=== PATIENT | female | born 1975 | race Caucasian/White ===

== ENCOUNTER 2019-07-22 08:45 | Outpatient (CLI) | payer OTHER, SELFPAY ==
[2019-07-22 09:52] LABS: HCG Quant, Pregnancy 20497 mIU/mL (1-3)
== END 2019-07-22 09:05 ==
PROVIDERS: PCP Family Medicine; Visit Provider Obstetrics & Gynecology Gynecology
DX: Z32.01 Encounter for pregnancy test, result positive (principal); Z01.84 Encounter for antibody response examination
CPT/HCPCS: 36415; 86850; 86900; 86901; 84702

== ENCOUNTER 2019-07-25 15:35 | Outpatient (CLI) | payer OTHER, SELFPAY ==
[2019-07-25 16:06] LABS: HCT 38.2 % (36.0-46.0); HGB 13.5 g/dL (12.0-15.5); Mean Corp. HGB Concentration 35.3 g/dL (32.0-36.0); Mean Corpuscular Hemoglobin 30.9 pg (27.0-33.0); Mean Corpuscular Volume 87.4 fL (80-95); Mean Platelet Volume 9.5 fL (8.0-11.0); Platelet Count 246 x1000/uL (130-400); RBC 4.37 m/cumm (4.00-5.20); RBC Distribution Width 12.8 % (11.7-14.6); White Blood Cell Count 8.15 k/cumm (4.4-10.8)
== END 2019-07-25 15:55 ==
PROVIDERS: PCP Family Medicine; Visit Provider Obstetrics & Gynecology Gynecology
DX: O02.1 Missed abortion (principal); Z01.818 Encounter for other preprocedural examination; Z01.812 Encounter for preprocedural laboratory examination
CPT/HCPCS: 36415; 85027; 86850; 86900; 86901

== ENCOUNTER 2019-07-26 06:11 | Day surgery (SDC) | payer OTHER, SELFPAY ==
[2019-07-26 06:30] VITALS: BP 133/88; PULSE 74; RESP 16; TEMP 36.4; O2SAT 100
[2019-07-26] MEDS: Lactated Ringers 1,000 ML 125 ML IV (06:52)
[2019-07-26] MEDS: DOXYCYCLINE 100 MG in Normal Saline 100 ML IVPB (07:38)
[2019-07-26] MEDS: Bupivacaine 0.25% Pres-Free 30 ML VIAL (07:47)
--- NOTE | 2019-07-26 07:50 | POCSPONT_PTH ---
PATIENT: Peace Harper LOC: [facility] U#:[id number] AGE/SX: 44/F ROOM: RE07/26/[address]: Manjula Morales : 1975 BED: DIS: 07/26/2019 SPEC #: [id number] RECD: 07/26/19 12:51 STATUS: FAHAD REKeily #: [id number] VERONICA: 07/26/19 07:[address]: Manjula Morales DEPT: Surgical Specimen RECD BY: Lorenza Shi ENTERED: 07/26/19 12:51 SP TYPE: POCSPONT JACIEL DR: Delia Mckinney Tissues: 1 - ,SPONTANEOUS Procedures: GROSS AND MICRO LEVEL 4 IMMUNOPEROXIDASE STAIN Comments: [id number]
[2019-07-26 08:28] VITALS: BP 116/71; PULSE 67; RESP 16; TEMP 36.6; O2SAT 96
--- NOTE | 2019-07-26 08:32 | W.PM.OP ---
Date of service: 07/26/19 Time of Service: 09:12 Operative Note Operative Note DATE OF PROCEDURE: 07/26/19 PRE-OP DIAGNOSIS: Missed at 10+ weeks estimated stational age POST-OP DIAGNOSIS: same PROCEDURE: Cervical dilatation and suction curettage or uterine cavity SURGEON: Manjula Morales ANESTHESIA: MAC ESTIMATED BLOOD LOSS: 0 PATHOLOGY: other (Products of conception to pathology) COMPLICATIONS: None Patient was transported to: same day Patient's condition: stable Indications: 44-year-old G2, P0 female who was noted to have an empty gestational sac at approximately 10 weeks as gestational age at the time of a dating ultrasound performed on 04/21/2020. Her quantitative hCG was 20,497 mIU/ml and blood type Rh+. Patient was counseled that in all likelihood this was a missed AB we discussed the possibility of a repeat ultrasound and a D&C next week. She was agreeable to this plan. However she began light uterine bleeding on 07/24/2019 and the decision was made to proceed with the D&C earlier than anticipated. Findings: Uterus is enlarged globular sounded to 9 cm. Moderate amount of products of conception removed from uterine cavity. The uterine cavity felt normal. Procedure Description: Patient was taken to the operating room she was placed in the dorsal supine position where monitored anesthesia care was administered without difficulty. She was then placed in the dorsal lithotomy position in yellowfin stirrups prepped and draped in the usual sterile fashion. SCDs were in place. Doxycycline 100 mg IV was administered when she entered the room. A bivalve speculum was placed in the vagina and the anterior lip of the cervix was infiltrated with 1cc of quarter percent Marcaine and a single-tooth tenaculum was applied to the anterior lip of the cervix. A paracervical block was performed with 5 cc of quarter percent Marcaine without epinephrine and the 4 and 8:00 cervical vaginal interface. Uterus was sounded with the above-noted findings and the cervix sequentially dilated to a maximum of 20 [place]. A 9 mm curved suction cannula was placed in the uterus attached to suction and all 4 quadrants of the uterine cavity were suction curetted with a moderate amount of tissue obtained. Suction cannula was removed and a banjo curette was used to gently curette all 4 quadrants uterine cavity with minimal tissue returned. Final pass of the suction curette was used with no tissue returned. The instruments were removed from the patient's vagina and the tenaculum site was noted to be hemostatic. She was placed in the dorsal supine position and awakened from anesthesia and successfully transferred to day surgery unit. All sponge lap needle counts correct x2
== END 2019-07-26 09:11 | disposition home or self-care (01) ==
PROVIDERS: PCP Family Medicine; Visit Provider Obstetrics & Gynecology Gynecology
PROC: (CPT 59841; principal; 2019-07-26 07:45)
DX: O02.1 Missed abortion (principal)
CPT/HCPCS: 59820; 88305; 88361; J1885; J2001; J2405

== ENCOUNTER 2019-09-02 09:14 | Outpatient (CLI) | payer OTHER, SELFPAY ==
[2019-09-02 10:49] LABS: HCG Quant, Pregnancy 1 mIU/mL (1-3)
[2019-09-03 10:14] LABS: Hepatitis B Surface Ag Negative (Negative)
[2019-09-03 10:37] LABS: Hepatitis C Ab w Rflx HCV PCR Negative (Negative)
[2019-09-03 11:13] LABS: HIV-1/2 Ag & Ab Screen Negative (Negative)
[2019-09-03 13:44] LABS: Syphilis Total Ab w/Reflex Nonreactive (Nonreactive)
== END 2019-09-02 09:34 ==
PROVIDERS: Obstetrics & Gynecology Gynecology; PCP Family Medicine; Visit Provider Nurse Practitioner Family
DX: Z11.3 Encounter for screening for infections with a predominantly sexual mode of transmission (principal); Z11.59 Encounter for screening for other viral diseases; Z11.4 Encounter for screening for human immunodeficiency virus [HIV]
CPT/HCPCS: 36415; 86803; 87340; 87389; 84702; 86780

== ENCOUNTER 2019-09-02 09:15 | Outpatient (REF) | payer OTHER, SELFPAY ==
--- NOTE | 2019-09-02 09:00 | PAPFT_PTH ---
PATIENT: Peace Harper LOC: [facility] U#:[id number] AGE/SX: 44/F ROOM: RE09/02/[address]: ARLIN Sebastian : 1975 BED: DIS: 09/02/2019 SPEC #: [id number] RECD: 09/02/19 12:52 STATUS: FAHAD REQ #: [id number] VERONICA: 09/02/19 09:[address]: Cecilia Tsai DEPT: [facility] Cytology RECD BY: Lorenza Shi ENTERED: 09/02/19 12:52 SP TYPE: PAPFT OTHR DR: Delia Mckinney Tissues: 1 - CX/ENDOCX FOR PAP SMEARS Procedures: PAP THIN PREP/UVM Screening HPV DNA PROBE Comments: [id number]
[2019-09-03 12:55] LABS: Chlamydia Result Negative (Negative); GC Result Negative (Negative)
== END 2019-09-02 09:35 ==
LOC: LBN 09:15
PROVIDERS: PCP Family Medicine; Visit Provider Nurse Practitioner Family
DX: Z11.3 Encounter for screening for infections with a predominantly sexual mode of transmission (principal); Z12.4 Encounter for screening for malignant neoplasm of cervix; Z11.51 Encounter for screening for human papillomavirus (HPV)
CPT/HCPCS: 87491; 87591; 88142; 87624

== ENCOUNTER 2020-09-03 11:08 | Outpatient (REF) | payer OTHER, SELFPAY ==
--- NOTE | 2020-09-03 10:30 | PAPFT_PTH ---
PATIENT: Peace Harper LOC: [place] U#:[id number] AGE/SX: 45/F ROOM: RE09/03/[address]: ARLIN Sebastian : 1975 BED: DIS: 09/03/2020 SPEC #: [id number] RECD: 09/03/20 18:17 STATUS: FAHAD REQ #: [id number] VERONICA: 09/03/20 10:[address]: Cecilia Tsai DEPT: [facility] Cytology RECD BY: Lorenza Shi ENTERED: 09/03/20 18:17 SP TYPE: PAPFT OTHR DR: Delia Mckinney Tissues: 1 - CX/ENDOCX FOR PAP SMEARS Procedures: PAP THIN PREP/UVM Screening HPV DNA PROBE Comments: [id number]
== END 2020-09-03 11:09 | disposition home or self-care (01) ==
LOC: LBN 11:08
PROVIDERS: PCP Family Medicine; Visit Provider Nurse Practitioner Family
DX: Z12.4 Encounter for screening for malignant neoplasm of cervix (principal); R87.610 Atypical squamous cells of undetermined significance on cytologic smear of cervix (ASC-US); Z11.51 Encounter for screening for human papillomavirus (HPV)
CPT/HCPCS: 88142; 87624

== ENCOUNTER 2020-09-10 08:29 | Outpatient (REF) | payer OTHER, SELFPAY ==
[2020-09-10 13:27] LABS: Abs Immature Grans 0.01 10^3/uL (0.0-0.06); Absolute Basophil Count 0.04 10^3/uL (0.0-0.2); Absolute Lymphocyte Count 2.06 10^3/uL (1.2-3.4); Absolute Monocyte Count 0.52 10^3/uL (0.1-0.8); Absolute Neutrophil Count 4.38 10^3/uL (1.2-6.7); Basophils % 0.6; Eosinophils % 1.4; HCT 42.8 % (36.0-46.0); HGB 15.1 g/dL (11.2-15.7); Immature Grans % 0.1; MCH 30.6 pg (27.0-33.0); MCHC 35.3 % (32.0-36.0); MCV 86.8 fL (80-95); Monocytes % 7.3; Neutrophils % 61.6; Nucleated RBC 0 %; Platelet Count 249 10^3/uL (130-400); RBC 4.93 10^6/uL (3.93-5.22); RDW-SD 38.4 fL; WBC 7.11 10^3/uL (4.4-10.8)
[2020-09-10 13:59] LABS: Calcium 9.2 mg/dL (8.5-10.1); Glucose 92 mg/dL (74-106)
[2020-09-10 14:00] LABS: ALT 31 U/L (14-59); AST 19 U/L (15-37); Albumin 4.2 g/dL (3.4-5.0); Alkaline Phosphatase 75 U/L (46-116); BUN 14 mg/dL (7-18); Bilirubin, Total 0.6 mg/dL (0.2-1.0); CREATININE 0.8 mg/dL (0.55-1.02); Calculated LDL 129 mg/dL (<100); Chloride 103 mmol/L (98-107); Cholesterol 199 mg/dL (<200); HDL Cholesterol 54 mg/dL (40-60); Potassium 3.7 mmol/L (3.5-5.1); Sodium 140 mmol/L (136-145); TSH (W/Ref FT4) 2.57 uIU/mL (0.36-3.74); Total Protein 7.6 g/dL (6.4-8.2); Triglyceride 84 mg/dL (<150)
== END 2020-09-10 08:30 | disposition home or self-care (01) ==
LOC: NCHCN 08:29
PROVIDERS: PCP Family Medicine; Visit Provider Family Medicine
DX: Z00.00 Encounter for general adult medical examination without abnormal findings (principal); Z13.29 Encounter for screening for other suspected endocrine disorder; Z13.220 Encounter for screening for lipoid disorders; Z13.21 Encounter for screening for nutritional disorder; R53.83 Other fatigue; E55.9 Vitamin D deficiency, unspecified
CPT/HCPCS: 80053; 80061; 82306; 84443; 85025

== ENCOUNTER 2020-09-23 02:05 | Outpatient (CLI) | payer OTHER, SELFPAY ==
--- NOTE | 2020-09-23 08:00 | DI.MAMMO_ITS ---
EXAM: MG MAMMO SCREENING CLINICAL HISTORY: screening,BASELINE,Z12.39. TECHNIQUE: Bilateral full field digital CC and MLO mammographic images were obtained with 3D tomosyn thesis and utilizing computer aided detection (CAD). COMPARISON: None. This is a baseline mammogram on this 42-year-old female patient. FINDINGS: Fibroglandular tissue is very dense, this decreasing the sensitivity mammogram for finding hidden und erlying lesions. There are no CAD designations. In the right breast there is a is a subtle suggestion of an asymmetric density-possible nodule seen o n the CC view located 4 centimetres in from the nipple, lateral of center. No malignant-appearing mi crocalcification groups in this region or elsewhere in either breast. There is no significant architectural distortion nor skin thickening-retraction. IMPRESSION: Very dense bilateral fibroglandular tissue. Asymmetric density-possible nodule in the right breast, slightly lateral center. Given this finding and density of this patient's fibroglandular tissue and significant family history I recommend which she undergo bilateral complete breast ultrasound BI-RADS Category 0 - Assessment Incomplete: Need additional imaging evaluation Breast Density - Category D - Extremely dense Breast density Category C or D implies that the patient has dense breast tissue. Dense breast tissue can make it harder to find cancer on a mammogram. Dense breast tissue is also associated with an incr eased risk of breast cancer. This information about the result of the mammogram report was provided to the patient to raise their awareness. Use this report when you speak with the patient about their risks for breast cancer, which includes their family history. At that time, you may recommend additional screening tests (Ultrasoun d or MRI) as these tests may add significant information. A negative radiographic report should not delay biopsy if a dominant or clinically suspicious mass is present. Up to ten percent of cancers are not identified on mammography. A negative report may reinforce clinical impression. Adenosis and dense breasts may obscure an underlying neoplasm. False positive reports average 6 to 10%. Patient will receive a letter notifying them of these results.
== END 2020-09-23 02:25 ==
PROVIDERS: PCP Family Medicine; Visit Provider Nurse Practitioner Family
DX: Z12.31 Encounter for screening mammogram for malignant neoplasm of breast (principal); R92.8 Other abnormal and inconclusive findings on diagnostic imaging of breast
CPT/HCPCS: 77063; 77067

== ENCOUNTER 2020-10-12 15:59 | Outpatient (REF) | payer OTHER, SELFPAY ==
--- NOTE | 2020-10-12 15:51 | ENDO_PTH ---
PATIENT: Peace Harper LOC: [place] U#:[id number] AGE/SX: 45/F ROOM: RE10/12/[address]: Manjula Morales : 1975 BED: DIS: 10/12/2020 SPEC #: [id number] RECD: 10/12/20 17:09 STATUS: FAHAD REKeily #: [id number] VERONICA: 10/12/20 15:[address]: Manjula Morales DEPT: Surgical Specimen RECD BY: Lorenza Shi ENTERED: 10/12/20 17:10 SP TYPE: Endo OTHR DR: Delia Mckinney Tissues: 1 - ENDOCERVICAL BX/CURRETTE Procedures: GROSS AND MICRO LEVEL 4 Comments: [id number]
== END 2020-10-12 16:00 | disposition home or self-care (01) ==
LOC: LBN 15:59
PROVIDERS: PCP Family Medicine; Visit Provider Obstetrics & Gynecology Gynecology
DX: N88.8 Other specified noninflammatory disorders of cervix uteri (principal)
CPT/HCPCS: 88305

== ENCOUNTER 2020-10-16 01:54 | Outpatient (CLI) | payer OTHER, SELFPAY ==
[2020-10-16 17:16] LABS: Estradiol 233 pg/mL (See Note)
[2020-10-16 17:39] LABS: FSH 1.9 mIU/mL (See Note)
[2020-10-17 15:24] LABS: Antimullerian Hormone 0.06 ng/mL (0.03-5.5)
== END 2020-10-16 01:55 | disposition home or self-care (01) ==
LOC: LBO 01:54
PROVIDERS: PCP Family Medicine; Visit Provider Obstetrics & Gynecology Gynecology
DX: Z87.42 Personal history of other diseases of the female genital tract (principal); Z31.89 Encounter for other procreative management
CPT/HCPCS: 36415; 82670; 83001; 83520

== ENCOUNTER 2021-09-27 10:19 | Outpatient (REF) | payer OTHER, SELFPAY ==
--- NOTE | 2021-09-27 09:45 | PAPFT_PTH ---
PATIENT: Peace Harper LOC: [place] U#:[id number] AGE/SX: 46/F ROOM: RE09/27/[address]: ARLIN Sebastian : 1975 BED: DIS: 09/27/2021 SPEC #: [id number] RECD: 09/27/21 13:07 STATUS: FAHAD REKeily #: [id number] VERONICA: 09/27/21 09:[address]: Cecilia Tsai DEPT: [facility] Cytology RECD BY: Lorenza Shi ENTERED: 09/27/21 13:07 SP TYPE: PAPFT OTHR DR: Delia Mckinney Tissues: 1 - CX/ENDOCX FOR PAP SMEARS Procedures: PAP THIN PREP/UVM Screening HPV DNA PROBE Comments: [id number]
== END 2021-09-27 10:20 | disposition home or self-care (01) ==
LOC: LBN 10:19
PROVIDERS: PCP Family Medicine; Visit Provider Nurse Practitioner Family
DX: Z12.4 Encounter for screening for malignant neoplasm of cervix (principal); Z11.51 Encounter for screening for human papillomavirus (HPV); Z87.42 Personal history of other diseases of the female genital tract
CPT/HCPCS: 88142; 87624

== ENCOUNTER → 2021-12-08 01:31 | Outpatient (CLI) | payer OTHER, SELFPAY ==
--- NOTE | 2021-12-08 12:17 | DI.MAMMO_ITS ---
Exam(s) MAMMO SCREENING EXAM: MAMMO SCREENING CLINICAL HISTORY: screening. TECHNIQUE: Bilateral full field digital CC and MLO mammographic images were obtained with 3D tomosyn thesis and utilizing computer aided detection (CAD). COMPARISON: Prior baseline mammogram of 09/23/2020 mammograms was reviewed, as was the bilateral yeyo ast ultrasound exam 09/30/2020. FINDINGS: The fibroglandular tissue pattern of the breast is is again noted to be very dense, this decreasing t he sensitivity of the mammogram for finding hidden underlying lesions. There are no CAD designations. Asymmetric density on the medial aspect of the right breast (cc view) is unchanged. There are no new spiculated masses nor malignant-appearing microcalcification in either breast. There is no significant architectural distortion nor skin thickening-retraction. IMPRESSION: Very dense bilateral fibroglandular tissue. No obvious radiographic evidence of malignancy. However, when reviewing this case and note that her ultrasound examination of 09/30/2020 revealed mul tiple nodules in the left breast which are hidden subjacent to her dense fibroglandular tissue on tran mography. Given these prior ultrasound findings, the density of this patient's fibroglandular tissue and significant family history I recommend that she undergo follow-up breast ultrasound. This shoul d be a bilateral study given the previously present left breast findings and strong family history. BI-RADS Category 0 - Assessment Incomplete: Need additional imaging evaluation Breast Density - Category D - Extremely dense Breast density Category C or D implies that the patient has dense breast tissue. Dense breast tissue can make it harder to find cancer on a mammogram. Dense breast tissue is also associated with an incr eased risk of breast cancer. This information about the result of the mammogram report was provided to the patient to raise their awareness. Use this report when you speak with the patient about their risks for breast cancer, which includes their family history. At that time, you may recommend additional screening tests (Ultrasoun d or MRI) as these tests may add significant information. A negative radiographic report should not delay biopsy if a dominant or clinically suspicious mass is present. Up to ten percent of cancers are not identified on mammography. A negative report may reinforce clinical impression. Adenosis and dense breasts may obscure an underlying neoplasm. False positive reports average 6 to 10%. Patient will receive a letter notifying them of these results.
== END ==
PROVIDERS: PCP Family Medicine; Visit Provider Nurse Practitioner Family
DX: Z12.31 Encounter for screening mammogram for malignant neoplasm of breast (principal); R92.8 Other abnormal and inconclusive findings on diagnostic imaging of breast; Z80.3 Family history of malignant neoplasm of breast
CPT/HCPCS: 77063; 77067